=== PATIENT | male | born 1940 | race Caucasian/White ===

== ENCOUNTER 2018-07-07 11:35 | Outpatient (CLI) | payer MEDICARE, BC, SELFPAY ==
[2018-07-07 13:03] LABS: Anion Gap 9.3 mmol/L (3-11); BUN 27 mg/dL (7-18); CO2 28.7 mmol/L (21.0-32.0); CREATININE 1.61 mg/dL (0.70-1.30); Calcium 9.3 mg/dL (8.5-10.1); Chloride 103 mmol/L (98-107); Estimated GFR 41.71 (mL/min/1.73m2); Glucose 171 mg/dL (70-100); Potassium 4.5 mmol/L (3.5-5.1); Sodium 141 mmol/L (136-145)
== END 2018-07-07 11:55 ==
PROVIDERS: PCP Family Medicine; Visit Provider Family Medicine
DX: I10 Essential (primary) hypertension (principal)
CPT/HCPCS: 36415; 80048

== ENCOUNTER 2020-09-18 15:03 | Outpatient (REF) | payer MEDICARE, BC, SELFPAY ==
[2020-09-18 18:59] LABS: ALT 14 U/L (16-63); AST 16 U/L (15-37); Albumin 4.1 g/dL (3.4-5.0); Alkaline Phosphatase 116 U/L (46-116); Anion Gap 10.7 mmol/L (3-11); BUN 27 mg/dL (7-18); Bilirubin, Total 0.3 mg/dL (0.2-1.0); CO2 26.3 mmol/L (21.0-32.0); CREATININE 1.7 mg/dL (0.70-1.30); Calcium 9.5 mg/dL (8.5-10.1); Chloride 106 mmol/L (98-107); Estimated GFR 38.97 (mL/min/1.73m2); Glucose 199 mg/dL (74-106); Potassium 4.4 mmol/L (3.5-5.1); Sodium 143 mmol/L (136-145); Total Protein 7.9 g/dL (6.4-8.2)
== END 2020-09-18 15:04 | disposition home or self-care (01) ==
LOC: LBN 15:03
PROVIDERS: PCP Nurse Practitioner Family; Visit Provider Nurse Practitioner Family
DX: N28.89 Other specified disorders of kidney and ureter (principal)
CPT/HCPCS: 80053

== ENCOUNTER 2021-07-24 03:29 | Outpatient (CLI) | payer MEDICARE, BC, SELFPAY ==
[2021-07-24 09:22] LABS: Hemoglobin A1C 8.9 % (<5.7)
== END 2021-07-24 03:30 | disposition home or self-care (01) ==
LOC: LBO 03:29
PROVIDERS: PCP Nurse Practitioner Family; Visit Provider Nurse Practitioner Family
DX: R73.09 Other abnormal glucose (principal)
CPT/HCPCS: 36415; 83036

== ENCOUNTER 2021-11-21 02:30 | Outpatient (CLI) | payer MEDICARE, BC, SELFPAY ==
[2021-11-21 12:33] LABS: Anion Gap 12.6 mmol/L (3-11); BUN 39 mg/dL (7-18); CO2 25.4 mmol/L (21.0-32.0); Calcium 9.6 mg/dL (8.5-10.1); Calculated LDL 96 mg/dL (<100); Chloride 105 mmol/L (98-107); Cholesterol 157 mg/dL (<200); Estimated GFR 32.23 (mL/min/1.73m2); Glucose 183 mg/dL (74-106); HDL Cholesterol 39 mg/dL (40-60); Potassium 3.9 mmol/L (3.5-5.1); Sodium 143 mmol/L (136-145); Triglyceride 114 mg/dL (<150)
== END 2021-11-21 02:31 | disposition home or self-care (01) ==
LOC: LBO 02:30
PROVIDERS: PCP Nurse Practitioner Family; Visit Provider Nurse Practitioner Family
DX: E78.5 Hyperlipidemia, unspecified (principal); E11.9 Type 2 diabetes mellitus without complications
CPT/HCPCS: 36415; 80048; 80061

== ENCOUNTER 2022-04-20 03:14 | Outpatient (CLI) | payer MEDICARE, BC, SELFPAY ==
[2022-04-20 16:53] LABS: Hemoglobin A1C 6.5 % (<5.7)
== END 2022-04-20 03:15 | disposition home or self-care (01) ==
PROVIDERS: PCP Nurse Practitioner Family; Visit Provider Nurse Practitioner Family
DX: E11.9 Type 2 diabetes mellitus without complications (principal)
CPT/HCPCS: 36415; 83036

== ENCOUNTER 2023-03-05 02:10 | Outpatient (CLI) | payer MEDICARE, BC, SELFPAY ==
[2023-03-05 14:12] LABS: CREATININE 1.8 mg/dL (0.70-1.30); Estimated GFR 36.89 (mL/min/1.73m2)
== END 2023-03-05 02:11 | disposition home or self-care (01) ==
PROVIDERS: PCP Nurse Practitioner Family; Visit Provider Nurse Practitioner Family
DX: N28.9 Disorder of kidney and ureter, unspecified (principal)
CPT/HCPCS: 36415; 82565

== ENCOUNTER 2023-11-17 20:58 | Outpatient (REF) | payer MEDICARE, BC, SELFPAY ==
[2023-11-17 22:09] LABS: COMMENT (LAB VIEW ONLY) 126.18 mg/dL; Microalb ug/mg Crea 14.9 ug/mg Cr
== END 2023-11-17 20:59 | disposition home or self-care (01) ==
LOC: LBN 20:58
PROVIDERS: PCP Nurse Practitioner Family; Visit Provider Nurse Practitioner Family
DX: E11.9 Type 2 diabetes mellitus without complications (principal)
CPT/HCPCS: 82043; 82570

== ENCOUNTER 2023-11-23 01:28 | Outpatient (CLI) | payer MEDICARE, BC, SELFPAY ==
[2023-11-23 14:31] LABS: CREATININE 2.3 mg/dL (0.70-1.30); Calculated LDL 97 mg/dL (<100); Cholesterol 158 mg/dL (<200); Estimated GFR 27.49 (mL/min/1.73m2); HDL Cholesterol 46 mg/dL (40-60); Potassium 4.3 mmol/L (3.5-5.1); Triglyceride 78 mg/dL (<150)
== END 2023-11-23 01:29 | disposition home or self-care (01) ==
LOC: LBO 01:28
PROVIDERS: PCP Nurse Practitioner Family; Visit Provider Nurse Practitioner Family
DX: E78.2 Mixed hyperlipidemia (principal); E11.9 Type 2 diabetes mellitus without complications
CPT/HCPCS: 36415; 80061; 82565; 84132

== ENCOUNTER 2024-11-22 02:37 | Outpatient (CLI) | payer MEDICARE, BC, SELFPAY ==
[2024-11-22 15:30] LABS: Anion Gap 11.1 mmol/L (3-11); BUN 50 mg/dL (7-18); CO2 25.9 mmol/L (21.0-32.0); Calcium 9.8 mg/dL (8.5-10.1); Calculated LDL 109 mg/dL (<100); Chloride 108 mmol/L (98-107); Cholesterol 182 mg/dL (<200); Estimated GFR 28.81 (mL/min/1.73m2); Glucose 130 mg/dL (74-106); HDL Cholesterol 41 mg/dL (>or=40); Potassium 5.5 mmol/L (3.5-5.1); Sodium 145 mmol/L (136-145); Triglyceride 160 mg/dL (<150)
== END 2024-11-22 02:38 | disposition home or self-care (01) ==
LOC: LBO 02:37
PROVIDERS: PCP Nurse Practitioner Family; Visit Provider Nurse Practitioner Family
DX: Z13.1 Encounter for screening for diabetes mellitus (principal); Z13.6 Encounter for screening for cardiovascular disorders
CPT/HCPCS: 36415; 80048; 80061